=== PATIENT | female | born 1990 ===

== ENCOUNTER 2023-10-29 07:51 | Inpatient (IN) | payer OTHER ==
[~2023-10-29] VITALS: Ht 157.5 cm; Wt 82.6 kg
[2023-10-29 10:03] LABS: HEMOGLOBIN 12.7 g/dL (12.0-15.00); MEAN CELL VOLUME 88.1 fL (80.00-100.00); MEAN CORPUSCULAR HEMOGLOBIN 29.6 pg (27.00-32.0); MEAN CORPUSCULAR HGB CONC 33.5 g/dl (32.0-36.0); PLATELET COUNT 233 K/uL (150-450); RED BLOOD COUNT 4.31 M/uL (4.00-6.00); RED CELL DISTRIBUTION WIDTH 15.9 % (11.5-14.5)
[2023-10-29 10:12] LABS: PH,URINE 6.5 (5.0-8.0); URINE APPEARANCE Clear; URINE BILIRRUBIN Negative (NEGATIVE); URINE BLOOD Negative; URINE COLOR Yellow; URINE GLUCOSE Negative (NEGATIVE); URINE LEUKOCYTE Trace; URINE NITRATE Negative; URINE PROTEIN Negative (NEGATIVE); URINE UROBILINOGEN 0.2 E.U./dl
[2023-10-29 10:18] LABS: URINE BACTERIA 75.5 uL (0.0-1933); URINE EPITHELIAL CELLS 4.9 uL (0.0-38.8); URINE RBC 11.6 uL (0.0-20.8); URINE WBC 15.9 uL (0.0-23.2)
[2023-10-29 10:47] LABS: INR < 0.93; PARTIAL THROMBOPLASTIN TIME 31.8 SECONDS (22.0-34.0); PROTHROMBIN TIME 9.5 SECONDS (9.0-11.5)
[2023-10-29 10:52] LABS: ALBUMIN 2.7 gm/dL (3.4-5.0); BILIRUBIN TOTAL 0.55 mg/dL (0.3-1.2); CREATININE SERUM 0.5 mg/dL (0.55-1.02); GFR 142.09; GLOBULINA 3.4 G/DL (2.4-3.5); POTASSIUM 3.99 mEq/L (3.5-5.1); TOTAL PROTEIN 6.1 gm/dL (6.4-8.2)
[2023-10-29 14:28] LABS: ABG PH 7.309 (7.35-7.45); ABG PO2 33.1 mmHg (80-100); ABG pCO2 41.4 mmHg (35-45); SaO2 55.7 %
[2023-10-29 14:29] LABS: BASE EXCESS -5.6 mmol/l; BICARBONATE 20.3 mmol/l (23-25); Tco2 21.6 mmol/l; o2 21 %
[2023-10-30 14:04] LABS: HEMATOCRIT 32.1 % (36.0-45.00); HEMOGLOBIN 10.8 g/dL (12.0-15.00); MEAN CELL VOLUME 90.2 fL (80.00-100.00); MEAN CORPUSCULAR HEMOGLOBIN 30.3 pg (27.00-32.0); MEAN CORPUSCULAR HGB CONC 33.6 g/dl (32.0-36.0); PLATELET COUNT 223 K/uL (150-450); RED BLOOD COUNT 3.56 M/uL (4.00-6.00); RED CELL DISTRIBUTION WIDTH 15.7 % (11.5-14.5)
== END 2023-10-31 16:21 | disposition home or self-care (01) | DRG 807 ==
LOC: LDR 07:51 → OB/GYN 07:51 → LDR 12:27 → OB/GYN 14:16
PROVIDERS: Obstetrics & Gynecology; ADMIT Specialist; ATTEND Specialist
PROC: 10E0XZZ Delivery of Products of Conception, External Approach (ICD-10-PCS; principal; 2023-10-29)
PROC: 0HQ9XZZ Repair Perineum Skin, External Approach (ICD-10-PCS; 2023-10-29)
PROC: 4A1HXCZ Monitoring of Products of Conception, Cardiac Rate, External Approach (ICD-10-PCS; 2023-10-29)
DX: O70.0 First degree perineal laceration during delivery (principal); Z37.0 Single live birth; Z3A.39 39 weeks gestation of pregnancy; Z20.822 Contact with and (suspected) exposure to COVID-19